=== PATIENT | female | born 1945 | race Caucasian/White ===

== ENCOUNTER → 2017-08-02 13:09 | Outpatient (CLI) | payer MEDICARE, BC ==
[2015-03-10 02:58] VITALS: BMI 27.5
[~2017-08-02 13:09] MED LIST: ALEVE220 MG PO; CO Q-10100 MG PO; GLUCOSAMINE & C1 CAP; HYDROCODONE-APA1 TAB PO; LIVALO2 MG PO; MOTRIN PM CAPL1 EACH PO; MULTI-DAY VITAM1 TAB PO; NORCO 10/325 TA1 TA1 PO; NORVASC5 MG PO; OYST-CAL-5001 TAB; PREVACID30 MG PO; PROTONIX40 MG PO; SYNTHROID50 MCG PO; VASOTEC10 MG PO; VITAMIN C1000 MG PO; VITAMIN D31000 UNI2 PO; ZOFRAN ODT4 MG/UDTAB PO; ZOFRAN4 MG PO
== END | disposition home or self-care (01) ==
LOC: D.MAMMO 11:15
DX: Z12.31 Encounter for screening mammogram for malignant neoplasm of breast (principal)

== ENCOUNTER → 2017-12-27 13:58 | Outpatient (CLI) | payer MEDICARE, BC ==
[2015-03-10 02:58] VITALS: BMI 27.5
== END | disposition home or self-care (01) ==
LOC: D.LAB 13:58
DX: R19.7 Diarrhea, unspecified (principal); D72.820 Lymphocytosis (symptomatic)

== ENCOUNTER 2018-01-27 05:54 | Day surgery (SDC) | payer MEDICARE, BC ==
[~2018-01-27] VITALS: Ht 167.6 cm; Wt 72.6 kg
--- NOTE | ~2018-01-27 | OP ---
PATIENT NAME: JUAN TSE MEDICAL RECORD: [id number] :49 LOCATION:D.OPS ADMISSION DATE: SURGEON: GIOVANNY VOSS MD DATE OF OPERATION: 01/27/2018 PREOPERATIVE DIAGNOSES: 1. 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 2. Duodenal intraepithelial lymphocytosis. POSTOPERATIVE DIAGNOSES: 1. 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 2. Duodenal intraepithelial lymphocytosis. 3. Total of 41 gastric polyps. PROCEDURES: 1. Esophagogastroduodenoscopy with duodenal biopsy. 2. Gastric polypectomies times 3. 3. Ablation of gastric polyps times 38 with the argon plasma gas analyst. SURGEON: Giovanny Voss MD DRAG OUT MAN: None. BLOOD LOSS: Minimal. ANESTHESIA: General. COMPLICATIONS: None. The risks, possible complications and alternatives to procedure were explained to the patient. She elects to proceed. OPERATIVE COURSE: The patient was conveyed to the operating room electively on 01/27/2018. General anesthesia was induced by the anesthesia staff. A bite block was inserted. A gastroscope was inserted into the mouth. It was advanced easily into the hypopharynx. The esophagus was easily intubated as were the stomach and duodenum. In the duodenum, I identified the site of the previous biopsy. I rebiopsied this area. I then assured hemostasis utilizing the argon plasma gas analyst. Retroflexed and angulus views were obtained. I biopsied the 3 largest polyps that could identify in the stomach. After thoroughly biopsying these in order to avoid a sampling error, I then ablated the polypoid bases with the argon plasma gas analyst with the esophageal setting in the forced mode. Another 38 polyps were identified within the stomach and these were ablated utilizing the argon plasma gas analyst with the esophageal setting in the forced mode. The endoscope was then withdrawn under direct vision. I will see the patient on a p.r.n. basis. I will be communicating with the patient's daughter and son-in-law and I can relay the biopsy results to them without having the patient come to the office. TRANSINT:[id number] Voice Confirmation ID: [id number] DOCUMENT ID: [id number] OPERATIVE REPORT [id number] JUAN TSE GIOVANNY VOSS MD at 1518 CC: GLEN SAL MD and EDITA SCOTT [id number] DICTATION DATE: 01/27/18 1009 [facility] NURSE: 01/27/18 1045 [facility] 01/27/18 [facility] [address] [place] [address]
[2018-01-27 06:34] LABS: HEMATOCRIT 40.3 % (36.0-48.0); HEMOGLOBIN 13.2 g/dL (12-16); MCH 29.5 pg (26.0-34.0); MCHC 32.8 g/dL (31.0-37.0); MCV 90.2 fL (80.0-100.0); MEAN PLATELET VOLUME 10.4 fL (7.4-10.4); RBC 4.47 10x6/uL (4.00-5.40); RDW 13.7 % (11.5-14.5); WBC 7.7 10x3/uL (4.8-10.8)
[2018-01-27 06:47] LABS: ANION GAP 13.8 mmol/L (8-16); CARBON DIOXIDE 28.7 mmol/L (21.0-32.0); CREATININE - SERUM 1.1 mg/dL (0.6-1.3); POTASSIUM - SERUM 4.5 mmol/L (3.5-5.1)
[2018-01-27 07:23] VITALS: BP 133/67; Ht 167.6 cm; Wt 72.6 kg
[2018-01-27] MEDS ORDERED: ZANTAC150 MG (07:34)
[2018-01-27] MEDS ORDERED: RESTORIL15 MG (07:34)
[2018-01-27] MEDS ORDERED: FENOFIBRATE160 MG PO (07:35)
[2018-01-27] MEDS ORDERED: HYZAAR 50-12.51 TAB PO (07:35)
== END 2018-01-27 11:40 | disposition home or self-care (01) ==
LOC: D.OPS 05:54 → D.PAN 08:00 → D.OPS 08:00
PROVIDERS: Anesthesiology
DX: K31.7 Polyp of stomach and duodenum (principal); D72.820 Lymphocytosis (symptomatic); Z01.812 Encounter for preprocedural laboratory examination

== ENCOUNTER → 2018-08-03 16:24 | Outpatient (CLI) | payer MEDICARE, BC ==
[2018-01-27 07:23] VITALS: BMI 25.8
[~2018-08-03 16:24] MED LIST changes: +FENOFIBRATE160 MG PO; +HYZAAR 50-12.51 TAB PO; +RESTORIL15 MG; +ZANTAC150 MG
== END | disposition home or self-care (01) ==
LOC: D.MAMMO 10:00
DX: Z12.31 Encounter for screening mammogram for malignant neoplasm of breast (principal)

== ENCOUNTER → 2019-02-14 08:45 | Outpatient (CLI) | payer MEDICARE, BC ==
[2018-01-27 07:23] VITALS: BMI 25.8
== END | disposition home or self-care (01) ==
LOC: D.HCCARDIO 08:45
PROVIDERS: ATTEND Internal Medicine Cardiovascular Disease
DX: R06.02 Shortness of breath (principal)

== ENCOUNTER 2019-08-16 08:00 | Outpatient (CLI) | payer MEDICARE, BC ==
[2018-01-27 07:23] VITALS: BMI 25.8
== END 2019-08-16 23:59 | disposition home or self-care (01) ==
LOC: D.MAMMO 08:00
PROVIDERS: ATTEND Family Medicine
DX: Z12.31 Encounter for screening mammogram for malignant neoplasm of breast (principal)

== ENCOUNTER 2019-09-01 07:28 | Emergency (ER) | payer MEDICARE, BC ==
[~2019-09-01] VITALS: Ht 167.6 cm; Wt 72.3 kg
[2019-09-01 07:34] VITALS: Ht 167.6 cm; Wt 72.3 kg
[2019-09-01] MEDS ORDERED: CARAFATE1 G PO (07:40)
[2019-09-01 07:59] LABS: BASOPHILS 0.4 % (0-2); EOSINOPHILS 1.8 % (0-7); HEMATOCRIT 40.6 % (36.0-48.0); IMMATURE GRANULOCYTES 1.6 % (0-5); LYMPHOCYTES 26.1 % (15-50); MCH 28.4 pg (26.0-34.0); MCV 88.8 fL (80.0-100.0); MEAN PLATELET VOLUME 10.6 fL (7.4-10.4); MONOCYTES 7.5 % (2-11); NEUTROPHILS 62.6 % (40-80); PLATELET COUNT 282 10x3/uL (130-400); RBC 4.57 10x6/uL (4.00-5.40); RDW 14.1 % (11.5-14.5); WBC 8.4 10x3/uL (4.8-10.8)
[2019-09-01 08:16] LABS: ANION GAP 16.9 mmol/L (8-16); CALCIUM 9.1 mg/dL (8.5-10.1); CARBON DIOXIDE 24.2 mmol/L (21.0-32.0); POTASSIUM - SERUM 4.1 mmol/L (3.5-5.1)
[2019-09-01 08:17] LABS: APTT 26.6 SECONDS (22.8-39.4); INR 0.94 (0.85-1.17); PROTIME 12.1 SECONDS (11.6-15.0)
[2019-09-01 08:24] LABS: ALBUMIN 3.9 g/dL (3.4-5.0); BILIRUBIN - TOTAL 0.51 mg/dL (0.2-1.3); PROTEIN - SERUM 7.6 g/dL (6.4-8.2)
[2019-09-01] MEDS ORDERED: HYDROCODON-ACE1 EAC7 PO (08:46)
[2019-09-01] MEDS ORDERED: CYCLOBENZAPRINE10 MG PO (08:46)
[2019-09-01] MEDS ORDERED: MEDROL DOSE PACK4 MG PO (08:46)
[2019-09-01 09:00] LABS: APPEARANCE CLEAR (CLEAR); BILIRUBIN NEGATIVE (NEGATIVE); COLOR STRAW (YELLOW); GLUCOSE NEGATIVE (NEGATIVE); KETONE NEGATIVE (NEGATIVE); NITRITE NEGATIVE (NEGATIVE); PROTEIN NEGATIVE (NEGATIVE); UROBILINOGEN NORMAL (NORMAL)
[2019-09-01 10:00] VITALS: BP 161/70
== END 2019-09-01 10:00 | disposition home or self-care (01) ==
LOC: D.ER 07:28
PROVIDERS: Family Medicine
DX: S80.02XA Contusion of left knee, initial encounter (principal); V49.9XXA Car occupant (driver) (passenger) injured in unspecified traffic accident, initial encounter; M54.5 Low back pain; I10 Essential (primary) hypertension

== ENCOUNTER → 2020-01-02 09:25 | Outpatient (CLI) | payer MEDICARE, BC ==
[2019-09-01 07:34] VITALS: BMI 25.7
[~2020-01-02 09:25] MED LIST changes: +CARAFATE1 G PO; +CYCLOBENZAPRINE10 MG PO; +HYDROCODON-ACE1 EAC7 PO; +MEDROL DOSE PACK4 MG PO
== END | disposition home or self-care (01) ==
LOC: D.HCCECHO 09:25
PROVIDERS: ATTEND Internal Medicine Cardiovascular Disease
DX: I10 Essential (primary) hypertension (principal)

== ENCOUNTER → 2020-03-27 15:41 | Outpatient (CLI) | payer MEDICARE, BC ==
[2019-09-01 07:34] VITALS: BMI 25.7
== END | disposition home or self-care (01) ==
LOC: D.US 15:41
PROVIDERS: ATTEND Family Medicine
DX: R42 Dizziness and giddiness (principal)

== ENCOUNTER → 2020-04-05 08:40 | Outpatient (CLI) | payer MEDICARE, BC ==
[2019-09-01 07:34] VITALS: BMI 25.7
== END | disposition home or self-care (01) ==
LOC: D.CT 08:30
PROVIDERS: ATTEND Family Medicine
DX: I77.89 Other specified disorders of arteries and arterioles (principal)

== ENCOUNTER → 2020-04-17 08:19 | Outpatient (CLI) | payer MEDICARE, BC ==
[2019-09-01 07:34] VITALS: BMI 25.7
== END | disposition home or self-care (01) ==
LOC: D.CT 04-16 08:00
PROVIDERS: ATTEND Psychiatry & Neurology Neurology
DX: I77.3 Arterial fibromuscular dysplasia (principal)

== ENCOUNTER → 2020-08-21 07:31 | Outpatient (CLI) | payer MEDICARE, BC ==
[2019-09-01 07:34] VITALS: BMI 25.7
== END | disposition home or self-care (01) ==
LOC: D.RAD 08-08 08:00
PROVIDERS: ATTEND Internal Medicine Gastroenterology
DX: R11.10 Vomiting, unspecified (principal)